=== PATIENT | female | born 1995 | race Caucasian/White ===

== ENCOUNTER → 2017-03-29 | Day surgery (SDC) | payer BC, OTHER ==
[~2017-03-29] VITALS: Ht 160 cm; Wt 59.0 kg
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
[2017-03-29 09:42] VITALS: BP 129/66
[2017-03-29 13:25] VITALS: BP 129/66
== END | disposition home or self-care (01) ==
LOC: TBA 05:19 → OR 05:19
DX: M25.852 Other specified joint disorders, left hip (principal); S73.102A Unspecified sprain of left hip, initial encounter; K21.9 Gastro-esophageal reflux disease without esophagitis; Z90.49 Acquired absence of other specified parts of digestive tract; Z88.6 Allergy status to analgesic agent; X58.XXXA Exposure to other specified factors, initial encounter; Y93.89 Activity, other specified; Y92.89 Other specified places as the place of occurrence of the external cause; Y99.8 Other external cause status; Z87.828 Personal history of other (healed) physical injury and trauma
CPT/HCPCS: 50010